=== PATIENT | male | born 1955 | race Caucasian/White ===

== ENCOUNTER 2021-01-11 21:09 | Inpatient (IN) | payer OTHER ==
[2021-01-11 21:20] VITALS: BMI 25.8
[2021-01-11] MEDS ORDERED: SODIUM CHLORIDE 1,000 ML IV SCH (22:00)
[2021-01-11 22:49] LABS: BASO % 0.5 % (0-2.0); EOS % 0.6 % (0-4.5); HEMOGLOBIN 13.1 GM/dL (11.7-16.9); LYMPH % 15.1 % (8-40); MCH 30.9 pg (25.7-33.7); MCHC 34.6 g/dl (32.0-35.9); MEAN CELL VOLUME 89.3 fl (80-96); MEAN PLT VOLUME 8.5 fl (7.5-11.1); NEUT % 77.8 % (42.8-82.8); PLATELET COUNT 244 10^3/uL (134-434); RBC 4.26 M/mm3 (4.00-5.60); RDW 13.4 % (11.9-15.9)
[2021-01-11 22:56] LABS: INR 0.95 (0.83-1.09); PROTHROMBIN TIME (PATIENT) 11.5 SEC (9.7-13.0)
[2021-01-11 22:59] LABS: ACTIVATED PTT 27.3 SECONDS (25.2-36.5)
[2021-01-11] MEDS ORDERED: ASPIRIN 81 MG CHEWABLE TABLETS ONE (23:47)
[2021-01-12 00:15] LABS: CHLORIDE 104 mmol/L (98-107); SODIUM 137 mmol/L (136-145)
[2021-01-12 00:17] LABS: ALBUMIN 3.6 g/dl (3.4-5.0); CALCIUM 8.4 mg/dL (8.5-10.1)
[2021-01-12 00:18] LABS: ANION GAP 8 MMOL/L (8-16); CO2 25 mmol/L (21-32); GLUCOSE,RANDOM 113 mg/dL (74-106)
[2021-01-12 00:21] LABS: CREATININE 0.9 mg/dL (0.55-1.3); SGPT/ALT 33 U/L (13-61)
[2021-01-12 00:22] LABS: BILIRUBIN,TOTAL 0.2 mg/dL (0.2-1); LDL CHOLESTEROL (ONLY SJRH) 81 mg/dL (5-100); TOT PROT 7.4 g/dl (6.4-8.2)
[2021-01-12 00:23] LABS: HDL CHOLESTEROL 45 mg/dL (40-60); SGOT/AST 23 U/L (15-37)
[2021-01-12 00:24] LABS: ALK PHOS 75 U/L (45-117); BLOOD UREA NITROGEN 12.6 mg/dL (7-18)
[2021-01-12] MEDS ORDERED: ASPIRIN 81 MG CHEWABLE TABLETS PO ONE ×2 (00:30→23:40)
[2021-01-12 00:31] LABS: CHOLESTEROL 132 mg/dL (50-200)
[2021-01-12 00:32] LABS: TRIGLYCERIDES 63 mg/dL (0-150)
[2021-01-12] MEDS ORDERED: ACETAMINOPHEN 325 MG TABLET (FP) PO PRN (01:45)
[2021-01-12 01:59] LABS: PH,URINE 7.5 (5.0-8.0); URINE APPEARANCE Error; URINE BILIRUBIN NEGATIVE (NEGATIVE); URINE COLOR YELLOW; URINE GLUCOSE (UA) NEGATIVE (NEGATIVE); URINE KETONE NEGATIVE (NEGATIVE); URINE LEUK ESTERASE NEGATIVE (NEGATIVE); URINE NITRITE NEGATIVE (NEGATIVE); URINE PROTEIN NEGATIVE (NEGATIVE); URINE UROBILINOGEN 0.2 mg/dL (0.2-1.0)
[2021-01-12 02:03] LABS: METHADONE, UR NEGATIVE (NEGATIVE); OPIATES, URI NEGATIVE (NEGATIVE); PHENCYCLIDINE,URINE NEGATIVE (NEGATIVE); URINE BARBITURATES NEGATIVE (NEGATIVE); URINE BENZODIAZEPINES NEGATIVE (NEGATIVE)
[2021-01-12 02:40] LABS: COCAINE, UR NEGATIVE (NEGATIVE); URINE AMPHETAMINES NEGATIVE (NEGATIVE)
[2021-01-12] MEDS ORDERED: LEVOTHYROXINE NA 100 MCG TABLET (FP) PO SCH (07:00)
[2021-01-12 07:46] LABS: CHLORIDE 110 mmol/L (98-107); SODIUM 142 mmol/L (136-145)
[2021-01-12 07:48] LABS: CALCIUM 8.7 mg/dL (8.5-10.1)
[2021-01-12 07:49] LABS: ALBUMIN 3.7 g/dl (3.4-5.0); ANION GAP 6 MMOL/L (8-16); BLOOD UREA NITROGEN 10.6 mg/dL (7-18); CO2 26 mmol/L (21-32); GLUCOSE,RANDOM 98 mg/dL (74-106)
[2021-01-12 07:50] LABS: MAGNESIUM 2.2 mg/dL (1.8-2.4)
[2021-01-12 07:51] LABS: SGPT/ALT 33 U/L (13-61)
[2021-01-12 07:52] LABS: CHOLESTEROL 151 mg/dL (50-200); CREATININE 0.8 mg/dL (0.55-1.3); SGOT/AST 21 U/L (15-37); TRIGLYCERIDES 60 mg/dL (0-150)
[2021-01-12 07:53] LABS: BILIRUBIN,TOTAL 0.3 mg/dL (0.2-1); LDL CHOLESTEROL (ONLY SJRH) 97 mg/dL (5-100); TOT PROT 7.8 g/dl (6.4-8.2)
[2021-01-12 07:54] LABS: ALK PHOS 75 U/L (45-117); BASO % 0.5 % (0-2.0); EOS % 1.1 % (0-4.5); HEMATOCRIT 41.2 % (35.4-49); HEMOGLOBIN 14.4 GM/dL (11.7-16.9); LYMPH % 28.8 % (8-40); MCH 31.4 pg (25.7-33.7); MCHC 34.9 g/dl (32.0-35.9); MEAN CELL VOLUME 89.9 fl (80-96); MEAN PLT VOLUME 9.1 fl (7.5-11.1); MONO % 8.5 % (3.8-10.2); NEUT % 61.1 % (42.8-82.8); PLATELET COUNT 274 10^3/uL (134-434); RBC 4.58 M/mm3 (4.00-5.60); RDW 13.5 % (11.9-15.9); WHITE BLOOD COUNT 6.9 K/mm3 (4.0-10.0)
[2021-01-12 07:55] LABS: HDL CHOLESTEROL 50 mg/dL (40-60)
[2021-01-12] MEDS ORDERED: PANTOPRAZOLE 40 MG TABLET ONE (09:17)
[2021-01-12] MEDS ORDERED: amLODIPine BESYLATE 5 MG TABLET (FP) ONE (09:17)
[2021-01-12] MEDS ORDERED: PANTOPRAZOLE 40 MG TABLET PO SCH (10:00)
[2021-01-12] MEDS ORDERED: amLODIPine BESYLATE 5 MG TABLET (FP) PO SCH (10:00)
[2021-01-12 11:41] VITALS: BP 124/80; PULSE 56; TEMP 98.3
[2021-01-13] MEDS ORDERED: ASPIRIN 81 MG CHEWABLE TABLETS PO SCH (10:00)
== END 2021-01-12 12:14 | disposition home or self-care (01) | DRG 198 ==
LOC: JER 21:09 → JERBED 23:43
PROVIDERS: ADMIT Family Medicine; ATTEND Family Medicine
DX: R07.89 Other chest pain (principal); I25.10 Atherosclerotic heart disease of native coronary artery without angina pectoris; E78.5 Hyperlipidemia, unspecified; I10 Essential (primary) hypertension; R41.82 Altered mental status, unspecified; F41.9 Anxiety disorder, unspecified; Z20.822 Contact with and (suspected) exposure to COVID-19; Z95.5 Presence of coronary angioplasty implant and graft
CPT/HCPCS: 36415; 70450-TC; 71046-TC-FY; 73560-TC-LT-FY; 80053; 80061; 80307; 81003; 82550; 83036; 83735; 84443; 84484; 85025; 85610; 85730; 86850; 86900; 86901; 87040; 87186; 93005; 93010; 99285-25; C9803; U0003; U0005

== ENCOUNTER 2021-01-13 10:29 | Inpatient (IN) | payer OTHER ==
[2021-01-13 12:02] LABS: BASO % 0.5 % (0-2.0); EOS % 1.8 % (0-4.5); HEMATOCRIT 43.3 % (35.4-49); HEMOGLOBIN 15.1 GM/dL (11.7-16.9); LYMPH % 25.4 % (8-40); MCH 31.8 pg (25.7-33.7); MCHC 34.9 g/dl (32.0-35.9); MEAN PLT VOLUME 8.5 fl (7.5-11.1); MONO % 7.2 % (3.8-10.2); NEUT % 65.1 % (42.8-82.8); PLATELET COUNT 259 10^3/uL (134-434); RBC 4.76 M/mm3 (4.00-5.60); RDW 13.7 % (11.9-15.9); WHITE BLOOD COUNT 6.6 K/mm3 (4.0-10.0)
[2021-01-13 12:22] LABS: ALBUMIN 3.7 g/dl (3.4-5.0); BLOOD UREA NITROGEN 14.8 mg/dL (7-18); CALCIUM 8.5 mg/dL (8.5-10.1)
[2021-01-13 12:26] LABS: CREATININE 0.9 mg/dL (0.55-1.3)
[2021-01-13 12:27] LABS: BILIRUBIN,TOTAL 0.4 mg/dL (0.2-1); TOT PROT 7.9 g/dl (6.4-8.2)
[2021-01-13] MEDS: VANCOMYCIN 1 GRAM (PRE-DOCKED) 1,000 MG/250 ML BAG IVPB SCH (17:00)
[2021-01-13] MEDS ORDERED: VANCOMYCIN 1 GRAM (PRE-DOCKED) 1,000 MG/250 ML BAG IVPB ONE (17:01)
[2021-01-13] MEDS: HEPARIN NA (PORCINE) 5,000 UNITS/ML 1ML VIAL SQ SCH (22:13)
[2021-01-13 23:11] VITALS: BMI 25.9
[2021-01-14] MEDS: VANCOMYCIN 1 GRAM (PRE-DOCKED) 1,000 MG/250 ML BAG IVPB SCH (04:20)
[2021-01-14] MEDS ORDERED: LEVOTHYROXINE NA 100 MCG TABLET (FP) PO SCH (07:00)
[2021-01-14 07:53] LABS: BASO % 0.5 % (0-2.0); EOS % 2.6 % (0-4.5); HEMATOCRIT 42.1 % (35.4-49); HEMOGLOBIN 14.4 GM/dL (11.7-16.9); LYMPH % 31.4 % (8-40); MCH 31.1 pg (25.7-33.7); MCHC 34.3 g/dl (32.0-35.9); MEAN CELL VOLUME 90.5 fl (80-96); MEAN PLT VOLUME 8.9 fl (7.5-11.1); MONO % 7.6 % (3.8-10.2); NEUT % 57.9 % (42.8-82.8); PLATELET COUNT 252 10^3/uL (134-434); RBC 4.65 M/mm3 (4.00-5.60); RDW 13.7 % (11.9-15.9); WHITE BLOOD COUNT 7.2 K/mm3 (4.0-10.0)
[2021-01-14 08:36] LABS: ALBUMIN 3.5 g/dl (3.4-5.0); BLOOD UREA NITROGEN 16.6 mg/dL (7-18); CALCIUM 8.4 mg/dL (8.5-10.1)
[2021-01-14 08:39] LABS: CREATININE 0.9 mg/dL (0.55-1.3)
[2021-01-14 08:40] LABS: BILIRUBIN,TOTAL 0.9 mg/dL (0.2-1); TOT PROT 7.3 g/dl (6.4-8.2)
[2021-01-14] MEDS ORDERED: amLODIPine BESYLATE 5 MG TABLET (FP) PO SCH (10:00)
[2021-01-14] MEDS ORDERED: ASPIRIN 81 MG CHEWABLE TABLETS PO SCH (10:00)
[2021-01-14] MEDS ORDERED: PANTOPRAZOLE 40 MG TABLET PO SCH (10:00)
[2021-01-14] MEDS: HEPARIN NA (PORCINE) 5,000 UNITS/ML 1ML VIAL SQ SCH (11:08)
[2021-01-14 12:09] VITALS: TEMP 97.9
[2021-01-14 14:43] VITALS: BP 125/87; PULSE 61
== END 2021-01-14 17:21 | disposition home or self-care (01) | DRG 724 ==
LOC: JER 10:29 → JERBED 12:54 → OBSVTOIN 16:04 → J6S 21:01
PROVIDERS: ADMIT Family Medicine; ATTEND Family Medicine
DX: R78.81 Bacteremia (principal); R07.89 Other chest pain; I10 Essential (primary) hypertension; E78.5 Hyperlipidemia, unspecified; G93.41 Metabolic encephalopathy; R50.9 Fever, unspecified; R42 Dizziness and giddiness
CPT/HCPCS: 36415; 80053; 84443; 85025; 85651; 86140; 87040; 93005; 93010; 93306-TC; 99285-25; C9803; G0378; J1644; U0003; U0005

== ENCOUNTER 2024-10-21 06:37 | Day surgery (SDC) | payer OTHER ==
[2024-10-15 15:00] VITALS: BMI 27.3
[2024-10-21 10:59] VITALS: RESP 16
[2024-10-21] MEDS ORDERED: MIDAZOLAM HCL 2 MG/2 ML SINGLE DOSE VIAL ONE (12:25)
[2024-10-21 13:02] VITALS: BP 142/90; PULSE 58; TEMP 97.5
== END 2024-10-21 14:02 | disposition home or self-care (01) ==
LOC: JASU-SURG 06:37
PROVIDERS: ATTEND Urology
PROC: 0TF3XZZ Fragmentation in Right Kidney Pelvis, External Approach (ICD-10-PCS; principal; 2024-10-21 12:39)
DX: N20.0 Calculus of kidney (principal)